=== PATIENT | female | born 1935 | race Caucasian/White ===

== ENCOUNTER 2017-11-09 12:18 | Emergency (ER) | payer MEDICARE ==
--- NOTE | 2017-11-09 12:47 | ER Document Report ---
ED GI/ - General Stated Complaint: VAGINAL BLEEDING Time Seen by Provider: 11/09/17 12:28 Notes: Patient is here for heavy vaginal bleeding. She is a 81-year-old female who has gone through menopause and has not had any vaginal bleeding or spotting in the past. She noticed yesterday that she was having some vaginal spotting of blood and went to see a local [employer] doctor who did a Pap smear and found that she was having little or no spotting or bleeding yesterday. Patient contacted her this morning saying that she is "hemorrhaging". Patient says that she went to the grocery store and while there began to have extremely heavy bleeding and cramping in the lower mid abdomen. She has not had any vomiting or diarrhea. She has not had any fever. PMH: Hypothyroid, IDDM, hypertension, high cholesterol. History of rheumatic fever. TRAVEL OUTSIDE OF THE [place] 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 No other surgeries. Review of Systems - Review of Systems Notes: REVIEW OF SYSTEMS: CONSTITUTIONAL : Denies fever. EENT: Denies eye, ear, nose or mouth or throat pain or other symptoms. CARDIOVASCULAR: Denies chest pain. RESPIRATORY: Denies cough, chest congestion, or shortness of breath. GASTROINTESTINAL: Denies nausea, vomiting, or diarrhea. Has had lower midline cramping pain since 11:30 AM today. GENITOURINARY: Denies difficulty or painful urinating, urinary frequency, blood in urine. MUSCULOSKELETAL: Denies back or neck pain. Denies joint pain or swelling. SKIN: Denies rash or skin lesions. NEUROLOGICAL: Denies LOC or altered mental status. Denies headache. Denies sensory loss or motor deficits. ALL OTHER SYSTEMS REVIEWED AND NEGATIVE. Physical Exam - Vital signs Vitals: Temp 98.1 F 11/09/17 12:28 Interpretation: Bradycardic - Notes Notes: PHYSICAL EXAMINATION: GENERAL: Well-appearing, in no acute distress. Vital signs are normal except for her heart rate of 48. HEAD: Atraumatic, normocephalic. EYES: Pupils equal round and reactive to light, extraocular movements intact. ENT: oropharynx clear without exudates. Moist mucous membranes. NECK: Normal range of motion, supple. LUNGS: Breath sounds clear and equal bilaterally. HEART: Regular rate and rhythm without murmurs. Heart rate about 50. ABDOMEN: Soft, nontender. No guarding or rebound. No masses. Pelvic exam performed. Patient had some bleeding on the diaper that she was wearing. She does not appear to be actively bleeding at this time. There is some old dried blood around the introitus. I inserted a speculum and opened it and there is just very minimal amount of clotting blood at the cervical loss. No active bleeding at this time. No fresh blood observed. Manual exam without significant findings. BACK: No tenderness throughout entire back. EXTREMITIES: Normal range of motion without pain. NEUROLOGICAL: Normal speech, normal gait. Normal sensory, motor, and reflex exams. Awake, alert, and oriented x3. Cranial nerves normal. SKIN: Warm, dry, no rashes. Course - Re-evaluation Re-evalutation: 11/09/17 19:48 Patient's labs were normal. Hemoglobin 13.3. She had an ultrasound of her pelvis performed which showed a fairly large mass in the uterus. Radiologist report believes this mass to be a large clot although a solid structure cannot be excluded. Patient's bleeding stopped while she was in the department. I spoke with Dr. Monsalve, who is going to see this patient in her office tomorrow for reevaluation and for referral to [facility] in [place]. - Vital Signs Vital signs: Temp Pulse Resp BP Pulse Ox 97.5 F 10 L 145/44 H 98 11/09/17 16:13 11/09/17 16:01 11/09/17 16:01 11/09/17 16:01 - Laboratory Result Diagrams: 11/09/17 12:10 11/09/17 12:10 Laboratory results interpreted by me: 11/09/17 11/09/17 11/09/17 12:10 12:10 13:30 RDW 14.8 H Plt Count 143 L BUN 28 H Est GFR ( Amer) 52 L Est GFR (Non-Af Amer) 43 L Glucose 115 H Urine Protein 30 H Urine Blood LARGE H Urine Urobilinogen 2.0 H Ur Leukocyte Esterase TRACE H - Diagnostic Test Radiology reviewed: Image reviewed, Reports reviewed - Likely large clot, in the uterus. Discharge - Discharge Clinical Impression: Vaginal bleeding Condition: Stable Disposition: HOME, SELF-CARE Additional Instructions: VAGINAL BLEEDING: You are having an episode of abnormal bleeding. Causes of abnormal vaginal bleeding can include miscarriage or tubal , tumors such as cancer or benign fibroids, medication effects, or hormone imbalance. Testing can eliminate unsuspected , tumors, or infection as a cause. "Dysfunctional uterine bleeding" is due to hormone imbalance, and is especially common at times when the normal cycle is disturbed -- whether by recent , use of control pills or hormones, or impending menopause. If the bleeding is innocent, most commonly a short course of hormones is given to restore the uterus to normal. Sometimes, the normal menstrual cycle corrects itself naturally. Sometimes , brief hormone therapy, or even a D&C is required. Your physician will advise you. Treatment for anemia may be required if bleeding is severe. You should rest and avoid intercourse until the bleeding is controlled. Call the doctor or return for re-examination if you feel faint, have increasing pain, or have a major increase in the amount of bleeding. NORMAL EXAM AND WORKUP: At this time, except for vaginal bleeding and a likely large clot in your uterus, your examination and workup show no significant abnormality. No significant abnormal physical findings were noted. All laboratory, EKG, and imaging (x-ray, CT scans, ultrasound) studies that were ordered show no significant abnormality. Although your examination and all studies that were ordered showed no significant abnormal finding, there are no examinations and no studies that are 100% accurate. There is always the possibility that some abnormality could exist and not be detected with physical examination or within the limits and capabilities of laboratory and other studies. You should return or follow up as you were instructed on your visit today for further evaluation if your symptoms do not resolve. FOLLOW-UP CARE: If you have been referred to a physician for follow-up care, call the physician s office for an appointment as you were instructed or within the next two days. If you experience worsening or a significant change in your symptoms (very heavy bleeding with large clots of blood, passage of tissue, more severe abdominal / pelvic pain or cramping, feeling faint or severe weakness, fever, etc.), notify the physician immediately or return to the Emergency Department at any time for re-evaluation. Follow-up with Dr. Monsalve in her office tomorrow, as scheduled. If you develop heavy vaginal bleeding that will not stop, come back to the emergency room for us to reevaluate immediately. Referrals: DAVID MONSALVE MD [[facility]] - Follow up tomorrow
[2017-11-09 12:55] LABS: ABSOLUTE BASOPHILS # (AUTO) 0.1 10^3/uL (0.0-0.2); ABSOLUTE EOSINOPHILS # (AUTO) 0.2 10^3/uL (0.0-0.6); ABSOLUTE LYMPHOCYTES (AUTO) 1.7 10^3/uL (0.5-4.7); ABSOLUTE MONOCYTES (AUTO) 0.7 10^3/uL (0.1-1.4); BASOPHILS % (AUTO) 0.9 % (0-2); EOSINOPHILS % (AUTO) 2.7 % (0-6); HEMATOCRIT 40.1 % (36.0-47.0); HEMOGLOBIN 13.3 g/dL (12.0-15.5); LYMPHOCYTES % (AUTO) 30.9 % (13-45); MEAN CORPUSCULAR HEMOGLOBIN 29.9 pg (27.0-33.4); MEAN CORPUSCULAR HGB CONC 33.3 g/dL (32.0-36.0); MEAN CORPUSCULAR VOLUME 90 fl (80-97); MONOCYTES % (AUTO) 12.2 % (3-13); PLATELET COUNT 143 10^3/uL (150-450); RED BLOOD COUNT 4.46 10^6/uL (3.72-5.28); RED CELL DISTRIBUTION WIDTH 14.8 % (11.5-14.0); SEGMENTED NEUTROPHILS % (AUTO) 53.3 % (42-78); TOTAL CELLS COUNTED % (AUTO) 100 %; WHITE BLOOD COUNT 5.6 10^3/uL (4.0-10.5)
[2017-11-09 13:23] LABS: ALANINE AMINOTRANSFERASE 41 U/L (9-52); ALBUMIN 4.1 g/dL (3.5-5.0); ALKALINE PHOSPHATASE 60 U/L (38-126); ANION GAP 11 (5-19); ASPARTATE AMINO TRANSFERASE 22 U/L (14-36); BILIRUBIN,DIRECT 0.4 mg/dL (0.0-0.4); BILIRUBIN,TOTAL 0.9 mg/dL (0.2-1.3); BLOOD UREA NITROGEN 28 mg/dL (7-20); CALCIUM 10.2 mg/dL (8.4-10.2); CARBON DIOXIDE 24 mmol/L (22-30); CHLORIDE 105 mmol/L (98-107); CREATINE KINASE 99 U/L (30-135); GLUCOSE 115 mg/dL (75-110); POTASSIUM 4.2 mmol/L (3.6-5.0); SODIUM 139.6 mmol/L (137-145); TOTAL PROTEIN 6.4 g/dL (6.3-8.2)
[2017-11-09 13:54] LABS: APPEARANCE,URINE SLIGHTLY-CLOUDY; BILIRUBIN,URINE NEGATIVE (NEGATIVE); COLOR,URINE YELLOW; GLUCOSE, URINE NEGATIVE (NEGATIVE); KETONES,URINE NEGATIVE (NEGATIVE); LEUKOCYTE ESTERASE,URINE TRACE (NEGATIVE); NITRITE,URINE NEGATIVE (NEGATIVE); PROTEIN,URINE 30 mg/dL (NEGATIVE); URINE SPECIFIC GRAVITY 1.023
--- NOTE | 2017-11-09 14:39 | RADIOLOGY REPORT (SQ) ---
EXAM DESCRIPTION: U/S NON-OB PELVIS TV W/O DOP COMPLETED DATE/TIME: 11/09/2017 2:26 pm REASON FOR STUDY: Vaginal bleeding. COMPARISON: None. TECHNIQUE: Dynamic and static grayscale images acquired of the pelvis via transvaginal approach and recorded on PACS. Additional selected color Doppler and spectral images recorded. LIMITATIONS: None. FINDINGS: UTERUS: Contour normal. No mass. ENDOMETRIAL STRIPE: A large echogenic mass is identified within the endometrial canal most consistent with a blood clot measuring 6.5 x 4.6 x 2.8 cm in diameters. There is adjacent fluid containing mob ile debris. The possibility of an endometrial neoplasm should be considered as a possible etiology. Clinical correlation is recommended CERVIX: No nabothian cysts. RIGHT OVARY: Right ovary was not visualized. LEFT OVARY: Left ovary was not visualized. FREE FLUID: None noted. OTHER: No other significant finding. MEASUREMENTS: UTERUS: 10.8 x 6.6 x 5 cm ENDOMETRIAL STRIPE: Echogenic mass measures 6.5 x 4.6 x 2.8 cm RIGHT OVARY: Not visualized LEFT OVARY: Not visualized IMPRESSION: A large echogenic mass is identified within the endometrial canal as noted above most co nsistent with a blood clot. There is adjacent fluid containing mobile debris. The possibility of an endometrial neoplasm should be considered as a possible etiology. Clinical correlation is recommend ed. Other findings as noted above TECHNICAL DOCUMENTATION: JOB ID: [id number] [employer]- All Rights Reserved Reading location - IP/workstation name: [email or web address]
[2017-11-09 16:11] VITALS: BP 145/44
== END 2017-11-09 16:26 | disposition home or self-care (01) ==
LOC: ER 12:18
DX: N93.9 Abnormal uterine and vaginal bleeding, unspecified (principal); R10.30 Lower abdominal pain, unspecified; E11.9 Type 2 diabetes mellitus without complications; I10 Essential (primary) hypertension; Z88.1 Allergy status to other antibiotic agents; Z87.892 Personal history of anaphylaxis; Z91.018 Allergy to other foods
CPT/HCPCS: 36415; 76830; 80053; 81001; 82550; 82962; 85025; 86850; 86900; 86901; 99284

== ENCOUNTER 2018-09-21 16:34 | Emergency (ER) | payer MEDICARE ==
[2018-09-21] MEDS ORDERED: IPRATROPIUM/ALBUTEROL 0.5-2.5 MG/3 ML AMPUL NEB ONE ×2 (17:06→19:54)
[2018-09-21] MEDS ORDERED: KETOROLAC TROMETHAMINE INJ/PF 30 MG/1 ML SDV IV ONE (17:06)
[2018-09-21] MEDS ORDERED: RINGERS SOLUTION,LACTATED 1,000 ML IV ONE ×2 (17:09→22:19)
--- NOTE | 2018-09-21 17:16 | RADIOLOGY REPORT (SQ) ---
EXAM DESCRIPTION: CHEST SINGLE VIEW COMPLETED DATE/TIME: 09/21/2018 5:09 pm REASON FOR STUDY: cough fever COMPARISON: None. EXAM PARAMETERS: NUMBER OF VIEWS: One view. TECHNIQUE: Single frontal radiographic view of the chest acquired. RADIATION DOSE: NA LIMITATIONS: None. FINDINGS: LUNGS AND PLEURA: Mild chronic appearing interstitial markings. No opacities, masses or p neumothorax. No pleural effusion. MEDIASTINUM AND HILAR STRUCTURES: No masses. Contour normal. HEART AND VASCULAR STRUCTURES: Heart normal in size. Normal vasculature. BONES: No acute findings. HARDWARE: None in the chest. OTHER: No other significant finding. IMPRESSION: NO ACUTE RADIOGRAPHIC FINDING IN THE CHEST. TECHNICAL DOCUMENTATION: JOB ID: [id number] [employer]- All Rights Reserved Reading location - IP/workstation name: [email or web address]
--- NOTE | 2018-09-21 17:28 | ER Document Report ---
ED General - General Chief Complaint: Flu Symptoms Stated Complaint: COLD SYMPTOMS Time Seen by Provider: 09/21/18 16:41 Primary Care Provider: GUILLERMO DOOLEY DO [Primary Care Provider] - Follow up as needed Mode of Arrival: Medic Information source: Patient, Relative, Emergency Med Personnel, REPLACED BY [facility] Records Notes: 82-year-old female with type 2 diabetes, hypertension, hyperlipidemia, remote history of endometrial cancer presents with complaint of cough, myalgia, short ness of breath. Patient states symptoms started 5 days prior to arrival. She states that she has had a productive constant cough, body aches, chills. Patient states that 2 hours prior to arrival she became short of breath. Patient denies any leg swelling, history of PE, DVT. Patient did have sick contacts with her 2 great grandchildren with similar symptoms. Patient has associated headache, chest pain with coughing only and nonbloody diarrhea. She denies any abdominal pain, back pain, nausea, vomiting. Patient denies any recent hospitalizations. Patient's primary care physician is Dr. Whitley. Patient reports a recent fall onto her right knee and right hip 3 days ago after becoming dizzy. She denies any head injury, blood thinning medications. She has been ambulating on the hip and knee since that time. TRAVEL OUTSIDE OF THE [place] IN LAST 30 DAYS: No - HPI Onset: Last week Onset/Duration: Gradual, Persistent, Worse Quality of pain: Achy, Burning Severity: Moderate Associated symptoms: Chills, Productive cough, Fever, Shortness of breath, Weakness. denies: Diarrhea, Nausea, Vomiting Exacerbated by: Coughing Relieved by: Denies Similar symptoms previously: No Recently seen / treated by doctor: Yes - Related Data Allergies/Adverse Reactions: cephalexin monohydrate [From Keflex] Allergy (Verified 10/16/10 13:21) RASH BANANAS Allergy (Severe, Uncoded 11/02/11 07:39) Anaphylaxis Past Medical History - General Information source: Patient, Relative, REPLACED BY [facility] Records - Social History Smoking Status: Never Smoker Frequency of alcohol use: None Drug Abuse: None Lives with: Spouse/Significant other Family History: Reviewed & Not Pertinent Patient has suicidal ideation: No Patient has homicidal ideation: No - Past Medical History Cardiac Medical History: Reports: Hx Hypercholesterolemia, Hx Hypertension Denies: Hx Heart Attack Renal/ Medical History: Denies: Hx Peritoneal Dialysis GI Medical History: Denies: Hx Hepatitis Infectious Medical History: Denies: Hx Hepatitis Past Surgical History: Reports: Other - 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 No other surgeries. Review of Systems - Review of Systems Notes: REVIEW OF SYSTEMS: CONSTITUTIONAL : Denies weight loss, recent hospitalizations. EENT: Denies visual changes, eye pain. Denies sore throat, oral lesions, difficulty swallowing. CARDIOVASCULAR: Denies palpitations. Denies lower extremity edema. RESPIRATORY: Denies wheezing. GASTROINTESTINAL: Denies abdominal pain or distention. Denies nausea, vomiting. Denies blood in vomitus, stools, or per rectum. Denies black, tarry stools. Denies constipation. GENITOURINARY: Denies difficulty urinating, painful urination, frequency, blood in urine, or vaginal discharge. MUSCULOSKELETAL: Denies back or neck pain or stiffness. Denies joint pain or swelling. SKIN: Denies rash, lesions or sores. HEMATOLOGIC : Denies easy bruising or bleeding. LYMPHATIC: Denies swollen glands. NEUROLOGICAL: Denies confusion or altered mental status. Denies loss of consciousness. Denies headache. Denies weakness or paralysis. Denies problems difficulty with ambulation, slurred speech. Denies sensory loss, numbness, or tingling. Denies seizures. PSYCHIATRIC: Denies anxiety or stress. Denies depression, suicidal ideation, or homicidal ideation. Denies visual or auditory hallucinations. Physical Exam - Vital signs Vitals: Temp 103.6 F H 09/21/18 17:01 - Notes Notes: PHYSICAL EXAMINATION: GENERAL: Well-appearing, well-nourished and in no acute distress. HEAD: Atraumatic, normocephalic. EYES: Pupils equal round and reactive to light, extraocular movements intact, conjunctiva are normal. ENT: Nares patent, oropharynx clear without exudates. Moist mucous membranes. NECK: Normal range of motion, supple without lymphadenopathy LUNGS: Coarse breath sounds left upper and lower lung field. No accessory muscle use, tachypnea, hypoxia. HEART: Regular rate and rhythm without murmurs ABDOMEN: Soft, nontender, nondistended abdomen. No guarding, no rebound. No masses appreciated. Female : deferred Musculoskeletal: Normal range of motion, no pitting or edema. No cyanosis. NEUROLOGICAL: Cranial nerves grossly intact. Normal speech, normal gait. Normal sensory, motor exams PSYCH: Normal mood, normal affect. SKIN: Warm, Dry, normal turgor, no rashes or lesions noted. Course - Re-evaluation Re-evalutation: Laboratory 09/21/18 09/21/18 09/21/18 17:30 17:30 17:30 WBC 5.3 RBC 3.57 L Hgb 10.8 L Hct 32.1 L MCV 90 MCH 30.3 MCHC 33.6 RDW 15.3 H Plt Count 91 L Seg Neutrophils % 80.7 H Lymphocytes % 7.5 L Monocytes % 11.0 Eosinophils % 0.4 Basophils % 0.4 Absolute Neutrophils 4.3 Absolute Lymphocytes 0.4 L Absolute Monocytes 0.6 Absolute Eosinophils 0.0 Absolute Basophils 0.0 PT 14.0 INR 1.03 VBG pH VBG pCO2 VBG HCO3 VBG Base Excess Sodium 134.1 L Potassium 4.2 Chloride 99 Carbon Dioxide 24 Anion Gap 11 BUN 29 H Creatinine 1.36 H Est GFR ( Amer) 45 L Est GFR (Non-Af Amer) 37 L Glucose 259 H Lactic Acid Calcium 8.3 L Total Bilirubin 1.0 Direct Bilirubin 0.2 Neonat Total Bilirubin Not Reportable Neonat Direct Bilirubin Not Reportable Neonat Indirect Bili Not Reportable AST 21 ALT 36 Alkaline Phosphatase 51 Troponin I Total Protein 5.5 L Albumin 3.6 Urine Color Urine Appearance Urine pH Ur Specific [place] Urine Protein Urine Glucose (UA) Urine Ketones Urine Blood Urine Nitrite Urine Bilirubin Urine Urobilinogen Ur Leukocyte Esterase Urine WBC (Auto) Urine RBC (Auto) U Hyaline Cast (Auto) Urine Bacteria (Auto) Squamous Epi Cells Auto Urine Mucus (Auto) Urine Ascorbic Acid Influenza A (Rapid) Influenza B (Rapid) 09/21/18 09/21/18 09/21/18 17:30 17:30 17:30 WBC RBC Hgb Hct MCV MCH MCHC RDW Plt Count Seg Neutrophils % Lymphocytes % Monocytes % Eosinophils % Basophils % Absolute Neutrophils Absolute Lymphocytes Absolute Monocytes Absolute Eosinophils Absolute Basophils PT INR VBG pH 7.42 VBG pCO2 40.5 VBG HCO3 25.7 VBG Base Excess 1.2 Sodium Potassium Chloride Carbon Dioxide Anion Gap BUN Creatinine Est GFR ( Amer) Est GFR (Non-Af Amer) Glucose Lactic Acid 2.1 Calcium Total Bilirubin Direct Bilirubin Neonat Total Bilirubin Neonat Direct Bilirubin Neonat Indirect Bili AST ALT Alkaline Phosphatase Troponin I Total Protein Albumin Urine Color Urine Appearance Urine pH Ur Specific [place] Urine Protein Urine Glucose (UA) Urine Ketones Urine Blood Urine Nitrite Urine Bilirubin Urine Urobilinogen Ur Leukocyte Esterase Urine WBC (Auto) Urine RBC (Auto) U Hyaline Cast (Auto) Urine Bacteria (Auto) Squamous Epi Cells Auto Urine Mucus (Auto) Urine Ascorbic Acid Influenza A (Rapid) NEGATIVE Influenza B (Rapid) NEGATIVE 09/21/18 09/21/18 09/21/18 18:05 21:30 21:30 WBC RBC Hgb Hct MCV MCH MCHC RDW Plt Count Seg Neutrophils % Lymphocytes % Monocytes % Eosinophils % Basophils % Absolute Neutrophils Absolute Lymphocytes Absolute Monocytes Absolute Eosinophils Absolute Basophils PT INR VBG pH VBG pCO2 VBG HCO3 VBG Base Excess Sodium Potassium Chloride Carbon Dioxide Anion Gap BUN Creatinine Est GFR ( Amer) Est GFR (Non-Af Amer) Glucose Lactic Acid 3.2 H Calcium Total Bilirubin Direct Bilirubin Neonat Total Bilirubin Neonat Direct Bilirubin Neonat Indirect Bili AST ALT Alkaline Phosphatase Troponin I 0.025 Total Protein Albumin Urine Color YELLOW Urine Appearance CLOUDY Urine pH 5.0 Ur Specific [place] 1.020 Urine Protein 30 H Urine Glucose (UA) 50 H Urine Ketones NEGATIVE Urine Blood NEGATIVE Urine Nitrite NEGATIVE Urine Bilirubin NEGATIVE Urine Urobilinogen 2.0 H Ur Leukocyte Esterase TRACE H Urine WBC (Auto) 5 Urine RBC (Auto) 1 U Hyaline Cast (Auto) 12 Urine Bacteria (Auto) TRACE Squamous Epi Cells Auto 6 Urine Mucus (Auto) OCC Urine Ascorbic Acid NEGATIVE Influenza A (Rapid) Influenza B (Rapid) Chest X-Ray 09/21/18 16:41 IMPRESSION: NO ACUTE RADIOGRAPHIC FINDING IN THE CHEST. Chest/Abdomen CTA 09/21/18 21:45 IMPRESSION: 1. No acute pulmonary embolism. 2. Groundglass opacities in the left lower lobe and posterior left upper lobe consistent with infection. 3. Trace left pleural effusion. Temp Pulse Resp BP Pulse Ox 99.4 F 22 H 132/45 H 96 09/21/18 23:01 09/21/18 23:01 09/21/18 23:01 09/21/18 23:01 82-year-old female presents via EMS from home with complaint of shortness of breath, cough, chills and sweats. Upon arrival patient is febrile with a temperature of 103. She did receive Tylenol prior to arrival. Upon my exam patient appears ill but not toxic. She does appear dehydrated. Exam is significant for coarse breath sounds in the left upper and left lower lung field. CBC is without leukocytosis but does show a stable anemia at 10 and thrombocytopenia which the patient has had in the past and is at her baseline. CMP shows a mild AK I with a creatinine 1.36. VBG within normal limits. Lactate was 2.1. Urinalysis not consistent with infection. Influenza negative. Chest x-ray showed no evidence of pneumonia but clinically the patient's exam is consistent with pneumonia. She was placed on oxygen due to her complaint of shortness of breath but she has never been hypoxic. Patient's heart rate within normal limits. Patient did receive IV Levaquin during her ED course, IV fluids, breathing treatments, aspirin. 09/21/18 19:54 Patient reevaluated and reports improvement of her shortness of breath. She states that she is feeling better. Is requesting discharge home. 09/21/18 22:23 is now back at the bedside. Patient states that she is feeling much better. Did discuss admission with the patient and her who both state that they want the patient to be sent home. 09/21/18 22:24 Patient reevaluated and is now complaining of left-sided chest pain. She states it feels like there is a knot in her chest. She initially stated that she was only having chest pain with coughing but now states that she is having pain without coughing. Troponin will be drawn. Repeat EKG was obtained which now shows ventricular bigeminy which is a change from her initial presenting EKG which showed her to be in normal sinus rhythm. Will obtain CTA of the chest. 09/21/18 22:42 CTA obtained and negative for pulmonary embolism it does show groundglass opacities in the left lung field. Discussed admission again with both the patient and her who states that the want to go home and will return if needed. Patient was evaluated and treated as appropriate for the patient's presenting symptoms and complaint, with consideration of any critical or life threatening conditions that may be associated with their obtained history and exam as noted above. All results were discussed with patient and her . Patient provided the opportunity to ask questions, and express concerns. Patient was educated on treatments based on their presumed diagnosis as noted above. At this time we will discharge the patient with return precautions and follow-up recommendations. Verbal discharge instructions given a the bedside. Medication warnings reviewed. Patient is in agreement with this plan and has verbalized understanding of return precautions. After careful consideration I feel that that patient can be safely discharged from the emergency department, they were advised to followup with a primary care physician in 2-3 days. Dictation on this chart was performed using voice recognition software and may result in unintended grammatical, spelling, syntax or errors. 09/21/18 23:52 09/21/18 23:53 - Vital Signs Vital signs: Temp Pulse Resp BP Pulse Ox 99.4 F 22 H 132/45 H 96 09/21/18 23:01 09/21/18 23:01 09/21/18 23:01 09/21/18 23:01 - Laboratory Result Diagrams: 09/21/18 17:30 09/21/18 17:30 Laboratory results interpreted by me: 09/21/18 09/21/18 09/21/18 17:30 17:30 18:05 RBC 3.57 L Hgb 10.8 L Hct 32.1 L RDW 15.3 H Plt Count 91 L Seg Neutrophils % 80.7 H Lymphocytes % 7.5 L Absolute Lymphocytes 0.4 L Sodium 134.1 L BUN 29 H Creatinine 1.36 H Est GFR ( Amer) 45 L Est GFR (Non-Af Amer) 37 L Glucose 259 H Lactic Acid Calcium 8.3 L Total Protein 5.5 L Urine Protein 30 H Urine Glucose (UA) 50 H Urine Urobilinogen 2.0 H Ur Leukocyte Esterase TRACE H 09/21/18 21:30 RBC Hgb Hct RDW Plt Count Seg Neutrophils % Lymphocytes % Absolute Lymphocytes Sodium BUN Creatinine Est GFR ( Amer) Est GFR (Non-Af Amer) Glucose Lactic Acid 3.2 H Calcium Total Protein Urine Protein Urine Glucose (UA) Urine Urobilinogen Ur Leukocyte Esterase - Diagnostic Test Radiology reviewed: Image reviewed, Reports reviewed - EKG Interpretation by Me EKG shows normal: Sinus rhythm Rate: Normal Rhythm: NSR When compared to previous EKG there are: No significant change Critical Care Note - Critical Care Note Total time excluding time spent on procedures (mins): 45 - Minutes of critical care time spent in direct contact evaluating and reevaluating the patient, treating symptoms, reviewing labs and studies and speaking with family and consultants excluding any procedures Discharge - Discharge Clinical Impression: Cough, Thrombocytopenia, GEOFFREY (acute kidney injury), Dehydration Community acquired pneumonia Qualifiers: Laterality: left Lung location: unspecified part of lung Qualified Code(s): J18.9 - Pneumonia, unspecified organism Fever Qualifiers: Fever type: unspecified Qualified Code(s): R50.9 - Fever, unspecified Anemia Qualifiers: Anemia type: unspecified type Qualified Code(s): D64.9 - Anemia, unspecified Condition: Good Disposition: HOME, SELF-CARE Instructions: Fever ([facility]), Pneumonia ([facility]), Anemia ([facility]), Dyspnea, Nonspecific ([facility]) Additional Instructions: You have been diagnosed with a pneumonia. It is very important that you take all of your antibiotics until they are gone even if you are feeling better. Please return to the emergency department immediately if you began having worsening shortness of breath, become confused, have worsening pain, pass out, have persistent vomiting that prevents you from being able to drink fluids for more than 12 hours, or have any other symptoms that are worrisome to you. Please follow-up with your primary care doctor in the next 1-2 days. Prescriptions: Benzonatate [Tessalon Perles 100 mg Capsule] 200 mg PO Q8HP PRN #20 capsule PRN Reason: Doxycycline Hyclate 100 mg PO BID #14 capsule Referrals: GUILLERMO ODOLEY DO [Primary Care Provider] - Follow up as needed
[2018-09-21] MEDS ORDERED: LEVOFLOXACIN 750 MG/D5W RTU 750 MG/150 ML RTUPB IV SCH ×2 (17:30→18:00)
[2018-09-21 17:54] LABS: ABSOLUTE LYMPHOCYTES (AUTO) 0.4 10^3/uL (0.5-4.7); ABSOLUTE MONOCYTES (AUTO) 0.6 10^3/uL (0.1-1.4); ABSOLUTE NEUT (AUTO) 4.3 10^3/uL (1.7-8.2); BASOPHILS % (AUTO) 0.4 % (0-2); EOSINOPHILS % (AUTO) 0.4 % (0-6); HEMATOCRIT 32.1 % (36.0-47.0); HEMOGLOBIN 10.8 g/dL (12.0-15.5); LYMPHOCYTES % (AUTO) 7.5 % (13-45); MEAN CORPUSCULAR HEMOGLOBIN 30.3 pg (27.0-33.4); MEAN CORPUSCULAR HGB CONC 33.6 g/dL (32.0-36.0); MEAN CORPUSCULAR VOLUME 90 fl (80-97); RED BLOOD COUNT 3.57 10^6/uL (3.72-5.28); RED CELL DISTRIBUTION WIDTH 15.3 % (11.5-14.0); SEGMENTED NEUTROPHILS % (AUTO) 80.7 % (42-78); TOTAL CELLS COUNTED % (AUTO) 100 %; WHITE BLOOD COUNT 5.3 10^3/uL (4.0-10.5)
[2018-09-21 17:56] LABS: INTERNATIONAL RATION (INR) 1.03
[2018-09-21 17:59] LABS: PLATELET COUNT 91 10^3/uL (150-450)
[2018-09-21] MEDS ORDERED: LEVOFLOXACIN 750 MG/D5W RTU 750 MG/150 ML RTUPB IV ONE (18:00)
[2018-09-21 18:02] LABS: VENOUS BLOOD BASE EXCESS 1.2 mmol/L; VENOUS BLOOD HCO3 25.7 mmol/L (20-32); VENOUS BLOOD PCO2 40.5 mmHg (35-63); VENOUS BLOOD PH 7.42 (7.30-7.42)
[2018-09-21 18:06] LABS: ALANINE AMINOTRANSFERASE 36 U/L (9-52); ALBUMIN 3.6 g/dL (3.5-5.0); ALKALINE PHOSPHATASE 51 U/L (38-126); ANION GAP 11 (5-19); ASPARTATE AMINO TRANSFERASE 21 U/L (14-36); BILIRUBIN,DIRECT 0.2 mg/dL (0.0-0.4); BLOOD UREA NITROGEN 29 mg/dL (7-20); CALCIUM 8.3 mg/dL (8.4-10.2); CARBON DIOXIDE 24 mmol/L (22-30); CHLORIDE 99 mmol/L (98-107); GLUCOSE 259 mg/dL (75-110); POTASSIUM 4.2 mmol/L (3.6-5.0); SODIUM 134.1 mmol/L (137-145); TOTAL PROTEIN 5.5 g/dL (6.3-8.2)
[2018-09-21 18:15] LABS: A TYPE INFLUENZA AG NEGATIVE (NEGATIVE); B INFLUENZA AG NEGATIVE (NEGATIVE)
[2018-09-21] MEDS ORDERED: NORMAL SALINE 500 ML IV ONE ×2 (18:53→20:38)
[2018-09-21 18:55] LABS: APPEARANCE,URINE CLOUDY; BILIRUBIN,URINE NEGATIVE (NEGATIVE); GLUCOSE, URINE 50 mg/dL (NEGATIVE); KETONES,URINE NEGATIVE (NEGATIVE); LEUKOCYTE ESTERASE,URINE TRACE (NEGATIVE); NITRITE,URINE NEGATIVE (NEGATIVE); PROTEIN,URINE 30 mg/dL (NEGATIVE)
[2018-09-21 18:56] LABS: COLOR,URINE YELLOW
--- NOTE | 2018-09-21 19:52 | EKG REPORT ---
SEVERITY:- NORMAL ECG - SINUS RHYTHM : Confirmed by: Dorian Ram MD 21-Sep-2018 19:52:08
[2018-09-21] MEDS ORDERED: ALBUTEROL SULFATE HFA (90 MCG/PUFF) 8 GM MDI (1 MDI/ER DISP) IH PRN (20:34)
[2018-09-21] MEDS ORDERED: FENTANYL CITRATE INJ/PF 100 MCG/2 ML AMPUL IV ONE ×2 (21:23→22:44)
[2018-09-21] MEDS ORDERED: ASPIRIN 81 MG TABLET, CHEWABLE PO ONE (22:19)
--- NOTE | 2018-09-21 22:24 | RADIOLOGY REPORT (SQ) ---
CT CHEST ANGIOGRAPHY WITHOUT THEN WITH IV CONTRAST HISTORY: Shortness of breath. COMPARISON: None. TECHNIQUE: CT angiogram of the chest with IV contrast. 3-D MIP images were obtained in coronal and sagittal reconstructions. This exam was performed according to our departmental dose-optimization program, which includes automated exposure control, adjustment of the mA and/or kV according to patient size and/or use of iterative reconstruction technique. FINDINGS: No acute pulmonary embolism is seen in the main or segmental branches. The thyroid gland is unremarkable. There are small scattered mediastinal lymph nodes. There is ground glass opacity in the left lower lobe and to lesser extent in the posterior aspect of the left upper lobe. Trace left pleural effusion is also seen. Right lung is clear. No pneumothorax. Small hiatal hernia is present. There are mild degenerative changes of the spine. IMPRESSION: 1. No acute pulmonary embolism. 2. Groundglass opacities in the left lower lobe and posterior left upper lobe consistent with infection. 3. Trace left pleural effusion.
[2018-09-21] MEDS ORDERED: HYDROCODONE/ACETAMINOPHEN 5-325 MG (6 TAB/ER DISP) PO PRN (22:41)
[2018-09-21 23:47] VITALS: BP 132/45
--- NOTE | 2018-09-22 08:00 | EKG REPORT ---
SEVERITY:- ABNORMAL ECG - SINUS RHYTHM VENTRICULAR BIGEMINY MINIMAL ST DEPRESSION, ANTEROLATERAL LEADS : Confirmed by: Dorian Ram MD 22-Sep-2018 07:59:27
[2018-09-22] MEDS ORDERED: LEVOFLOXACIN 750 MG/D5W RTU 750 MG/150 ML RTUPB IV SCH (18:00)
== END 2018-09-21 23:35 | disposition home or self-care (01) ==
LOC: ER 16:34
DX: J18.9 Pneumonia, unspecified organism (principal); E86.0 Dehydration; N17.9 Acute kidney failure, unspecified; J90 Pleural effusion, not elsewhere classified; D69.6 Thrombocytopenia, unspecified; R05 Cough; R50.9 Fever, unspecified; M79.10 Myalgia, unspecified site; R00.8 Other abnormalities of heart beat; R06.02 Shortness of breath; R53.1 Weakness; R51 Headache; R19.7 Diarrhea, unspecified; R07.9 Chest pain, unspecified; E11.9 Type 2 diabetes mellitus without complications; I10 Essential (primary) hypertension; Z91.81 History of falling; Z88.1 Allergy status to other antibiotic agents; Z87.892 Personal history of anaphylaxis; Z91.018 Allergy to other foods
CPT/HCPCS: 93005; 96376; 94640 ×2; 99291; 96361; 96375; 96365; 36415; 87040; 87086; 85025; 85610; 87088; 80053; 81001; 84484; 87186; 82803; 83605; 87804; 71045; 71275; 93010; A9270 ×3; J3010; J1885; J7040; J7120; J1956; J3490; J7620

== ENCOUNTER → 2020-07-08 | Outpatient (CLI) | payer MEDICARE ==
[2020-07-08 09:38] VITALS: BP 208/79
--- NOTE | 2020-07-08 09:38 | ER [facility] ASSESSMENT REPORT ---
Intake - In the Last 14 days Have you traveled outside [place]?: No Have you been in close contact with someone CONFIRMED: No Worked in Healthcare?: No - Symptoms Subjective Fever([place] feverish): No Chills: No Runny Nose: No Sore Throat: No Cough (New or worsening chronic cough): No Shortness of breath: No Nausea or Vomiting: No Headache: No Abdominal Pain: No Diarrhea(3 or more loose stools in last 24 hours): No - Do you have any of the following Chronic lung disease: Asthma or emphysema or COPD: No Cystic Fibrosis: No Diabetes: Yes High Blood Pressure: Yes Cardiovascular Disease: No Chronic Kidney Disease: No Chronic Liver Disease: No Chronic blood disorder like Sickle Cell Disease: No Weak immune system due to disease or medication: No Neurologic condition that limits movement: No Developmental delay - Moderate to Severe: No Recent (within past 2 weeks) or current : No Morbid Obesity (>100 pounds over ideal weight): No - Objective Temperature: 98.3 F Pulse Rate: 52 Respiratory Rate: 16 Blood Pressure: 208/79 O2 Sat by Pulse Oximetry: 94 Objective: Given above, testing performed: If Testing Performed: Test Specimen Type Sent to General - General Information source: Patient Notes: Patient presents to the [facility] for screening for the coronavirus. Patient states that she is trying to have a procedure that requires a negative Covid first. Patient denies any symptoms. Patient does acknowledge being anxious today. Patient does have high blood pressure and has taken her blood pressure medication today. - Related Data Allergies/Adverse Reactions: cephalexin monohydrate [From Keflex] Allergy (Verified 10/16/10 13:21) RASH BANANAS Allergy (Severe, Uncoded 11/02/11 07:39) Anaphylaxis Past Medical History - General Information source: Patient - Social History Smoking Status: Never Smoker Family History: Reviewed & Not Pertinent - Past Medical History Cardiac Medical History: Reports: Hx Hypercholesterolemia, Hx Hypertension Denies: Hx Heart Attack Pulmonary Medical History: Denies: Hx Asthma Neurological Medical History: Denies: Hx Cerebrovascular Accident, Hx Seizures Endocrine Medical History: Reports: Hx Diabetes Mellitus Type 2 Renal/ Medical History: Denies: Hx Peritoneal Dialysis GI Medical History: Denies: Hx Hepatitis, Hx Hiatal Hernia, Hx Ulcer Psychiatric Medical History: Reports: Hx Depression - +anxiety Infectious Medical History: Denies: Hx Hepatitis Surgical Hx: Negative Past Surgical History: Reports: Hx Hysterectomy, Other - 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 No other surgeries. Physical Exam - Notes Notes: The patient was evaluated during the global Covid 19 pandemic, and that diagnosis was suspected/considered upon their initial presentation. Their evaluation, treatment and testing was consistent with current guidelines for patients who present with complaints or symptoms that may be related to Covid 19. Full physical exam could not be performed due to covid 19 isolation protocols. Constitutional: Nontoxic appearance, no acute distress Eyes: Nonicteric, extraocular movements intact, sclera clear Cardiovascular: Heart rate and rhythm regular, no JVD Respiratory: Breath sounds clear bilaterally, nonlabored breathing, no use of accessory muscles, no tachypnea Gastrointestinal: Abdomen not distended Muculoskeletal: Moves all extremities well Skin: Normal color Neuro: Awake alert oriented, normal speech Psych: Normal mood and affect Diagnostic Results Laboratory Results: Patient presents for screening for possible Covid 19. Patient does not have emergency worrying symptoms such as difficulty breathing, shortness of breath, chest pain, pressure, confusion or cyanosis. Patient appears suitable for discharge as they are nontoxic in appearance. Good return precautions have been discussed with patient, patient verbalized understanding and is agreeable with discharge plan of care at this time. Patient Education/Counseling Counseling/Education: Patient was provided with discharge information including: As a person under investigation for Covid 19, the [place] department of Health and Human Services, division of public health advises you to adhere to th e following guidance until your test results are reported to you. If your test result is positive, you will receive additional information from your provider and your local health department at that time. Remain at home until you are cleared by the health provider or public health authorities. Keep a log of visitors to your home, notify any visitors to your home of your isolation status. If you plan to move to a new address or leave the county, notify the local health department in your County. Call your doctor or seek care if you have an urgent medical need. Before seeking medical care, call ahead to get instructions from the provider before arriving at the medical office clinic or hospital. Notify them that you are being tested for the virus that causes Covid 19 so that arrangements can be made, as necessary, to prevent transmission to others in the healthcare setting. Next, notify the local health department in your county. If a medical emergency arises and you need to call 911, inform the first responders that you are being tested for the virus that causes Covid 19. Next, notify the local health department in your county. [facility] Discharge - Discharge Clinical Impression: Encounter for screening laboratory testing for COVID-19 virus in asymptomatic patient Condition: Stable Disposition: Home; Selfcare
== END ==
LOC: RDC 09:04
PROVIDERS: ATTEND Nurse Practitioner Family
DX: Z20.828 Contact with and (suspected) exposure to other viral communicable diseases (principal); I10 Essential (primary) hypertension; E78.00 Pure hypercholesterolemia, unspecified; E11.9 Type 2 diabetes mellitus without complications; Z88.1 Allergy status to other antibiotic agents; F41.9 Anxiety disorder, unspecified; F32.9 Major depressive disorder, single episode, unspecified; Z91.018 Allergy to other foods
CPT/HCPCS: 99201; U0003; G0463; C9803; 87635; 99211